=== PATIENT | female | born 1980 | race Caucasian/White ===

== ENCOUNTER 2022-07-30 14:25 | Outpatient (CLI) | payer OTHER, SELFPAY ==
--- NOTE | 2022-07-30 14:30 | MM_ITS ---
WS: [id number] BILATERAL 3D TOMOSYNTHESIS DIGITAL SCREENING MAMMOGRAPHY WITH CAD CLINICAL INFORMATION: BILATERAL BREAST LUMP HISTORY: Screening mammogram. Bilateral palpable lumps. TECHNIQUE: Bilateral CC and MLO views. FINDINGS: The breasts are composed of heterogeneous fibroglandular density tissue, which can limit the detectio n of small underlying mass lesions. Palpable marker 12:00 LEFT breast and upper outer RIGHT breast ne ar the axillary tail. Bilateral breast implants appear intact. Incidental coarse calcifications RIGHT breast. Ultrasound is pending. ULTRASOUND BREAST BILATERAL TECHNIQUE: Ultrasound bilateral breast focused area of concern. CLINICAL INFORMATION: BILATERAL BREAST LUMP COMPARISON: None. FINDINGS: RIGHT BREAST: RIGHT axillary tail ultrasound demonstrates multiple normal size lymph nodes. Additiona l RIGHT lateral lymph node the o'clock position. No suspicious findings in the RIGHT breast. LEFT BREAST: Ultrasound LEFT breast in the area of patient concern at the 12 to 1:00 position. Dense underlying parenchymal tissue. No suspicious cystic or solid lesions. No lesions to target for biopsy . MM/[place] [id number] IMPRESSION: BI-RADS: 2-Benign FOLLOW UP: 1 Year Follow-up Recommend return to annual screening mammography.
== END 2022-07-30 14:26 | disposition home or self-care (01) ==
LOC: RAD 14:27
PROVIDERS: Family Provider Family Medicine; PCP Registered Nurse; Visit Provider Registered Nurse
DX: N63.10 Unspecified lump in the right breast, unspecified quadrant (principal); N63.20 Unspecified lump in the left breast, unspecified quadrant
CPT/HCPCS: 76642; 77062

== ENCOUNTER 2022-08-14 06:35 | Outpatient (CLI) | payer OTHER, SELFPAY ==
--- NOTE | 2022-08-14 07:15 | US_ITS ---
WS: [id number] RIGHT UPPER QUADRANT ULTRASOUND HISTORY: K80.20 - Calculus of gallbladder without cholecystitis COMPARISON: None available. Liver: 13.8 cm in length. Normal size liver. No bile duct dilatation or mass. Portal Vein: Normal hepatopetal flow with monophasic waveform. Gallbladder: Normally distended gallbladder with no stones or wall thickening. CBD: 0.2 cm Pancreas: Normal size and echogenicity. Right kidney: 10.3 cm in length. Normal size and echogenicity. No hydronephrosis or mass. Aorta and IVC: Unremarkable abdominal aorta and IVC. No ascites. US/US gall bladder [id number] IMPRESSION: Normal RIGHT upper quadrant ultrasound.
== END 2022-08-14 06:36 | disposition home or self-care (01) ==
LOC: RAD 06:35
PROVIDERS: PCP Registered Nurse; Visit Provider Registered Nurse
DX: K80.20 Calculus of gallbladder without cholecystitis without obstruction (principal)
CPT/HCPCS: 76705

== ENCOUNTER → 2022-08-20 15:32 | Outpatient (BNVA) | payer OTHER, SELFPAY | PROVIDERS: PCP Registered Nurse; Visit Provider Registered Nurse | DX: Z01.419 Encounter for gynecological examination (general) (routine) without abnormal findings (principal); K21.9 Gastro-esophageal reflux disease without esophagitis | CPT/HCPCS: 87624 ==

== ENCOUNTER → 2022-08-28 16:39 | Outpatient (BNVA) | payer OTHER, SELFPAY | PROVIDERS: PCP Registered Nurse; Visit Provider Registered Nurse | DX: K21.9 Gastro-esophageal reflux disease without esophagitis (principal); R53.83 Other fatigue | CPT/HCPCS: 82306; 82607 ==

== ENCOUNTER → 2022-10-18 13:34 | Outpatient (BNVA) | payer OTHER, SELFPAY | PROVIDERS: PCP Registered Nurse; Visit Provider Nurse Practitioner Family | DX: N39.0 Urinary tract infection, site not specified (principal); L29.9 Pruritus, unspecified; R94.4 Abnormal results of kidney function studies | CPT/HCPCS: 80048; 81000 ==

== ENCOUNTER 2022-11-10 22:54 | Emergency (ER) | payer OTHER, SELFPAY ==
--- NOTE | 2022-11-10 23:08 | XRR_ITS ---
PROCEDURE INFORMATION: Exam: XR Chest Exam date and time: 11/11/2022 12:41 AM Age: 42 years old Clinical indication: Shortness of breath; Additional info: SOB TECHNIQUE: Imaging protocol: Radiologic exam of the chest. Views: 1 view. COMPARISON: CT abdomen pelvis w con* [id number] 03/28/2018 1:04 PM FINDINGS: Lungs: Unremarkable. No consolidation. Pleural spaces: Unremarkable. No pleural effusion. No pneumothorax. Heart/Mediastinum: Unremarkable. No cardiomegaly. Bones/joints: Unremarkable. XR/XR chest 1V portable [id number] IMPRESSION: No acute findings.
[2022-11-10 23:21] VITALS: BP 125/69; PULSE 86; RESP 18; TEMP 37.4; O2SAT 99
--- NOTE | 2022-11-11 00:24 | W.ED.GENADLT ---
HPI - General Adult General: Chief complaint: General Medical Stated complaint: covid symptoms Time Seen by Provider: 11/10/22 23:39 History of Present Illness: 42-year-old female comes in today for complaints of sore throat and exposure to COVID-19. Patient reports symptoms starting today. Patient appears nontoxic. Patient appears mildly unwell. Associated symptoms: Reports malaise Review of Systems Const: Reports: malaise ENMT: Reports: throat pain PFSH ED PFSH: Surgical History Hx of breast augmentation Family History Family/Other No problems noted. Social History Smoking and tobacco status: never smoked Alcohol intake: never Adopted: No Caregiver/support person: No Lives independently: No Household members: significant other service: No Current occupational status: employed Sexually active: Yes Current gender identity: Female Physical Exam Const: COMMON NORMALS: alert HENMT: COMMON NORMALS: normocephalic HEAD & SCALP: normocephalic Neck/C-Spine: COMMON NORMALS: full ROM Resp: COMMON NORMALS: normal respiratory effort and clear to auscultation bilaterally AUSCULTATION: clear to auscultation bilaterally Cardio: COMMON NORMALS: regular rate and regular rhythm RATE: regular rate RHYTHM: regular rhythm Extremity: COMMON NORMALS: normal to inspection Neuro: SENSORIUM/ORIENTATION: Yes alert Skin: COMMON NORMALS: turgor normal GENERAL SKIN EXAM: turgor normal Course Vital Signs: Vital signs: Vital Signs Temperature 99.3 F 11/10/22 23:21 Pulse Rate 86 11/10/22 23:21 Respiratory Rate 18 11/10/22 23:21 Blood Pressure 125/69 11/10/22 23:21 Pulse Oximetry 99 11/10/22 23:21 Oxygen Delivery Me thod 11/10/22 23:21 [facility] - General Adult Medical Decision Making 42-year-old female comes in today for complaints of sore throat and malaise. On exam posterior pharynx is slightly erythematous. Lungs are clear to auscultation. Abdomen soft nontender. No edema is noted in the extremities. Differential diagnosis includes COVID-19, other viral illness, pharyngitis. COVID and influenza were both negative. Reviewed exam with patient with recommendations for treatment and follow-up. Patient reported understanding and agreed to plan. Lab Data Radiology Impressions Chest X-Ray 11/10/22 23:08 IMPRESSION: No acute findings. Laboratory Results Influenza Type A Ag negative (Negative) 11/11/22 00:30 Influenza Type B Ag negative (Negative) 11/11/22 00:30 SARS-CoV-2 Ag (Rapid) negative (Negative) 11/11/22 00:30 Discharge Plan Discharge Patient Disposition: Home Clinical Impression: Viral respiratory illness Condition: Stable Prescriptions: No Action cholecalciferol (vitamin D3) 325 mcg (13,000 unit) capsule PO mecobalamin (vitamin B12) 5,000 mcg tablet,disintegrating PO Discharge Orders: Discharge ED (Routine); Ordered 11/11/22 Ordered By: Avila Smith Referrals: Louis Mendez FNP [Primary Care Provider] - Discharge Diet: Usual diet Discharge Activity: Increase activity as tolerated Patient Instructions: Upper Respiratory Infection (ED) Activity Restrictions/Additional Instructions: Home and rest. Use acetaminophen and ibuprofen as needed for pain and fever. Follow-up with primary care as needed. Return to emergency department for new concerns. Coding Level of Care Code ED Monotype Keyboard Operator for [place] Exam Detailed
[2022-11-11 00:55] LABS: Influenza A by IFA negative (Negative); Influenza B by IFA negative (Negative)
[2022-11-11 00:56] LABS: SARS Covid-2 Antigen negative (Negative)
== END 2022-11-11 01:16 | disposition home or self-care (01) ==
PROVIDERS: Emergency Medicine; Emergency Provider Nurse Practitioner Family; PCP Registered Nurse
DX: B34.9 Viral infection, unspecified (principal); Z20.822 Contact with and (suspected) exposure to COVID-19
CPT/HCPCS: 71045; 87426; 87804; 99283

== ENCOUNTER 2022-12-06 09:57 | Outpatient (CLI) | payer OTHER, SELFPAY | END 2022-12-06 09:58 | disposition home or self-care (01) | LOC: SLEEP 12-07 09:58 | PROVIDERS: PCP Registered Nurse; Visit Provider Nurse Practitioner Family | DX: R53.83 Other fatigue (principal); R06.83 Snoring; G47.19 Other hypersomnia | CPT/HCPCS: G0399 ==

== ENCOUNTER 2022-12-14 07:36 | Outpatient (CLI) | payer OTHER, SELFPAY ==
--- NOTE | 2022-12-14 08:00 | NM_ITS ---
WS: [id number] NUCLEAR MEDICINE HIDA SCAN WITH GALLBLADDER EJECTION FRACTION HISTORY: R10.811 - Right upper quadrant abdominal tenderness COMPARISON: Gallbladder ultrasound 08/14/2022 TECHNIQUE: The patient was intravenously injected with 8.0 mCi of TC99m Mebrofenin. Immediate imaging over the right upper quadrant was followed by 5 minute image and additional images for a total of 60 minutes. Normal uptake of radiotracer throughout the liver. Activity identified in the gallbladder at 20 minutes and well distended by 60 minutes. Activity in the proximal small bowel was seen by 20 minutes. Good washout of the radiotracer from the liver by 60 minutes. The patient then drank 8 ounces of Ensure Plus. Ejection fraction at 60 minutes was 63%. Normal GB ej ection fraction is 35-75%. Post fatty meal symptoms: None. NM/NM hepatobiliary w phar* [id number] IMPRESSION: 1. Normal HIDA scan. 2. Normal gallbladder ejection fraction.
== END 2022-12-14 07:37 | disposition home or self-care (01) ==
PROVIDERS: PCP Registered Nurse; Visit Provider Nurse Practitioner Family
DX: R10.811 Right upper quadrant abdominal tenderness (principal)
CPT/HCPCS: 78227; A9537

== ENCOUNTER → 2023-01-11 15:07 | Outpatient (BNVA) | payer OTHER, SELFPAY | PROVIDERS: PCP Registered Nurse; Visit Provider Nurse Practitioner Family | DX: R39.9 Unspecified symptoms and signs involving the genitourinary system (principal); N30.10 Interstitial cystitis (chronic) without hematuria | CPT/HCPCS: 81000 ==

== ENCOUNTER → 2023-01-18 15:47 | Outpatient (BNVA) | payer OTHER, SELFPAY | PROVIDERS: PCP Registered Nurse; Visit Provider Registered Nurse | DX: N39.0 Urinary tract infection, site not specified (principal) | CPT/HCPCS: 81000 ==

== ENCOUNTER → 2023-02-15 14:27 | Outpatient (BNVA) | payer OTHER, SELFPAY | PROVIDERS: PCP Registered Nurse; Visit Provider Registered Nurse | DX: N39.0 Urinary tract infection, site not specified (principal); N30.10 Interstitial cystitis (chronic) without hematuria; G47.00 Insomnia, unspecified | CPT/HCPCS: 85025 ==

== ENCOUNTER → 2023-02-18 13:56 | Outpatient (BNVA) | payer OTHER, SELFPAY | PROVIDERS: PCP Registered Nurse; Visit Provider Registered Nurse | DX: R53.83 Other fatigue (principal) | CPT/HCPCS: 80053; 82306; 82607; 84443; 85025 ==

== ENCOUNTER 2023-08-12 07:43 | Outpatient (CLI) | payer OTHER, SELFPAY ==
--- NOTE | 2023-08-12 07:55 | MM_ITS ---
WS: [id number] BILATERAL SCREENING DIGITAL BREAST MAMMOGRAPHY WITH LEATHA DISPLACEMENT VIEWS. CAD PERFORMED. HISTORY: SCREENING COMPARISON: 07/30/2022 Bilateral craniocaudal and mediolateral oblique views are performed with tomosynthesis and SM. Leatha displacement views in CC and MLO projection also performed. Breasts composition: The breasts are heterogeneously dense, which may obscure small masses. Implants are retropectoral and intact. No change. Small cluster of calcifications is noted 12:00 RIGH T breast which are also unchanged. Benign in appearance. IMPRESSION: MM/[place] [id number] BI-RADS: 2-Benign FOLLOW-UP: 1 Year Follow-up
== END 2023-08-12 07:44 | disposition home or self-care (01) ==
LOC: RAD 07:45
PROVIDERS: PCP Registered Nurse; Visit Provider Registered Nurse
DX: Z12.31 Encounter for screening mammogram for malignant neoplasm of breast (principal)
CPT/HCPCS: 77063; 77067

== ENCOUNTER 2023-12-11 06:08 | Day surgery (SDC) | payer OTHER, SELFPAY ==
[2023-12-11 06:32] VITALS: BP 107/73; PULSE 90; RESP 18; TEMP 36.1; O2SAT 96; BMI 20.2
[2023-12-11] MEDS: sodium chloride 0.9% 1,000 ML 30 ML IV (06:46)
--- NOTE | 2023-12-11 06:56 | ANES.PREANE2 ---
Pre-Anesthetic Assessment Height/Weight: Height 1.65 m Weight 55.338 kg Temp Pulse Resp BP Pulse Ox O2 Del Method 97.0 F L 90 18 107/73 96 Room Air 12/11/23 06:32 12/11/23 06:32 12/11/23 06:32 12/11/23 06:32 12/11/23 06:32 12/11/23 06:32 Operation Date: 12/11/23 07:30 [place] 10578 egd R10.13(Not Applicable) - Vladimir Holbrook DO Last intake: Intake Last Liquid Date 12/10/23 Last Liquid Time 21:45 Last Solid Date 12/10/23 Last Solid Time 18:30 Social No alcohol and No tobacco Exam alert, oriented x 3, clear to auscultation bilaterally and regular rate & rhythm Airway Submandibular: within normal limits Cervical ROM: within normal limits Mallampati: Class II History/ROS No significant history except as noted and No significant complaints Pulmonary Cough CV/HEM None reported None reported Hepatic None reported GI Gastroesophageal Reflux Disease Metabolic None reported Musc/skel Lower Back Pain and Osteoarthritis/DJD Neuropsych Anxiety and Seizure (eclampsia) Anesthetic Plan ASA status: 2 Anesthesia: MAC Risk of > 500 ml blood loss (7ml/kg in children): No Medications/Allergies Home Medications Medication Instructions Recorded Confirmed Last Taken Type albuterol sulfate 90 mcg/actuation 2 puff inhalation Q6H PRN 10/24/23 12/11/23 7 Months Ago Rx aerosol inhaler shortness of breath or wheezing ~05/11/23 #8.5 grams cholecalciferol (vitamin D3) 1,250 1,250 mcg PO DAILY 11/27/23 12/09/23 12/10/23 History mcg (50,000 unit) capsule pantoprazole 40 mg tablet,delayed 40 mg PO BID 6 weeks #84 tabs 11/27/23 12/09/23 12/10/23 Rx release (Protonix) alprazolam 0.25 mg tablet 0.25 mg PO BID PRN Anxiety 12/09/23 12/09/23 12/09/23 History cyanocobalamin (vitamin B-12) 1,000 mcg PO DAILY 12/09/23 12/09/23 12/10/23 History 1,000 mcg tablet (Vitamin B-12) tretinoin 0.05 % topical cream 1 applic topical BEDTIME 12/09/23 12/09/23 12/10/23 History Allergies Allergy/AdvReac Type Severity Reaction Status Date / Time No Known Allergies Allergy Verified 11/27/23 13:55 Current Medications Generic Name Dose Route Start Last Admin Trade Name Sweetie PRN Reason Stop Dose Admin Sodium Chloride 1,000 mls @ 30 mls/hr 12/11/23 06:30 12/11/23 06:46 Sodium Chloride 0.9% IV 12/12/23 06:29 30 mls/hr .Q24H KIMBER Administration PFSH Anesthesia Surgical History Hx of breast augmentation Family History Family/Other No problems noted. Social History Smoking and tobacco/nicotine status: never used tobacco/nicotine Alcohol intake: never Substance/Drug Use: never Adopted: No Caregiver/support person: No Lives independently: No Household members: significant other service: No Current occupational status: employed Sexually active: Yes Do you think of yourself as: Straight/Heterosexual Current gender identity: Female Female Reproductive History Date of last menstrual period: 11/23/23 Data Anesthesia Cardiac Studies: No Data to Display
--- NOTE | 2023-12-11 07:29 | W.PM.OPSUD ---
Surgery/Procedure H&P Update DATE OF PROCEDURE: December 11, 2023 DATE H&P PERFORMED: 11/27/23 H&P UPDATE INFORMATION: I have reviewed H&P completed within last 30 days, I have examined patient prior to procedure and No changes to prior documentation PLANNED PROCEDURE: Operation Date: 12/11/23 07:30 Proposed Procedures p 69446 egd R10.13(Not Applicable) - Vladimir Holbrook, DO
[2023-12-11 07:41] LABS: OR HCG Qualitative Urine Negative (Negative)
[2023-12-11 07:48] VITALS: BP 93/51; PULSE 79; RESP 18; TEMP 36.6; O2SAT 96
[2023-12-11 08:07] VITALS: BP 101/74; PULSE 80; RESP 16; O2SAT 98
--- NOTE | 2023-12-11 14:13 | ANE.PACU2 ---
Inpatient post-anesthesia follow up: Airway intact: Yes Vital signs: Temperature 98 F Pulse Rate 80 Respiratory Rate 16 Blood Pressure 101/74 Pulse Oximetry 98 Oxygen Delivery Me thod Room Air Oxygen Flow Rate Fraction of Inspir ed Oxygen Hydration adequate: Yes Nausea and vomiting: No Pain level: 2 Mental status: Baseline
== END 2023-12-11 08:30 | disposition home or self-care (01) ==
PROVIDERS: Anesthesiology; PCP Registered Nurse; Visit Provider Surgery
PROC: 0DJ08ZZ Inspection of Upper Intestinal Tract, Via Natural or Artificial Opening Endoscopic (ICD-10-PCS; CPT 43235; principal; 2023-12-11 07:30)
DX: R10.13 Epigastric pain (principal); K29.50 Unspecified chronic gastritis without bleeding; K21.9 Gastro-esophageal reflux disease without esophagitis
CPT/HCPCS: 43239; 81025; 84703; 88305; 88342; J2704; J7030

== ENCOUNTER 2024-01-14 06:54 | Day surgery (SDC) | payer OTHER, SELFPAY ==
[2024-01-14] VITALS (14 sets, daily range): BP systolic 102–132; BP diastolic 68–93; PULSE 52–96; RESP 16–18; TEMP 36.1–36.6; O2SAT 92–99; BMI 20.1
[2024-01-14 07:12] LABS: OR HCG Qualitative Urine Negative (Negative)
[2024-01-14] MEDS: sodium chloride 0.9% 1,000 ML 30 ML IV (07:24)
--- NOTE | 2024-01-14 07:34 | ANES.PREANE2 ---
Pre-Anesthetic Assessment Height/Weight: Height 1.65 m Weight 54.885 kg Temp Pulse Resp BP Pulse Ox O2 Del Method 97.8 F 79 18 102/70 97 Room Air 01/14/24 07:18 01/14/24 07:18 01/14/24 07:18 01/14/24 07:18 01/14/24 07:18 01/14/24 07:13 Operation Date: 01/14/24 08:45 Proposed Procedures p [id number] lap mainor K80.50(Not Applicable) - Vladimir Holbrook, DO Was Beta Aki taken within 24 hours: N/A Was Clonidine taken within 24 hours: N/A Last intake: Intake Last Liquid Date 01/13/24 Last Liquid Time 23:00 Last Solid Date 01/13/24 Last Solid Time 18:00 Social No tobacco Exam alert and oriented x 3 Airway Submandibular: within normal limits Cervical ROM: within normal limits Mallampati: Class I History/ROS No significant history except as noted and No significant complaints Anesthetic Plan ASA status: 1 Anesthesia: General Risk of > 500 ml blood loss (7ml/kg in children): No Medications/Allergies Home Medications Medication Instructions Recorded Confirmed Last Taken Type albuterol sulfate 90 mcg/actuation 2 puff inhalation Q6H PRN 10/24/23 01/14/24 1 Day Ago Rx aerosol inhaler shortness of breath or wheezing ~01/13/24 #8.5 grams cholecalciferol (vitamin D3) 1,250 1,250 mcg PO DAILY 11/27/23 01/14/24 1 Day Ago History mcg (50,000 unit) capsule ~01/13/24 pantoprazole 40 mg tablet,delayed 40 mg PO BID 6 weeks #84 tabs 11/27/23 01/13/24 01/13/24 Rx release (Protonix) alprazolam 0.25 mg tablet 0.25 mg PO BID PRN Anxiety 12/09/23 01/14/24 1 Day Ago History ~01/13/24 cyanocobalamin (vitamin B-12) 1,000 mcg PO DAILY 12/09/23 01/14/24 1 Day Ago History 1,000 mcg tablet (Vitamin B-12) ~01/13/24 tretinoin 0.05 % topical cream 1 applic topical BEDTIME 12/09/23 01/13/24 01/12/24 History Allergies Allergy/AdvReac Type Severity Reaction Status Date / Time No Known Allergies Allergy Verified 01/14/24 07:19 Current Medications Generic Name Dose Route Start Last Admin Trade Name Sweetie PRN Reason Stop Dose Admin Sodium Chloride 1,000 mls @ 30 mls/hr 01/14/24 07:00 01/14/24 07:24 Sodium Chloride 0.9% IV 01/15/24 06:59 30 mls/hr .Q24H KIMBER Administration PFSH Anesthesia Surgical History Hx of breast augmentation Family History Family/Other No problems noted. Social History Smoking and tobacco/nicotine status: never used tobacco/nicotine Alcohol intake: never Substance/Drug Use: never Adopted: No Caregiver/support person: No Lives independently: No Household members: significant other service: No Current occupational status: employed Sexually active: Yes Do you think of yourself as: Straight/Heterosexual Current gender identity: Female Data Anesthesia Cardiac Studies: No Data to Display
--- NOTE | 2024-01-14 08:31 | W.PM.OPSUD ---
Surgery/Procedure H&P Update DATE OF PROCEDURE: January 14, 2024 DATE H&P PERFORMED: 12/18/23 H&P UPDATE INFORMATION: I have reviewed H&P completed within last 30 days, I have examined patient prior to procedure and No changes to prior documentation PLANNED PROCEDURE: Operation Date: 01/14/24 08:45 Proposed Procedures p [id number] lap mainor K80.50(Not Applicable) - Vladimir Holbrook DO
[2024-01-14] MEDS: midazolam 1 mg/mL INJ 2 mL 2 MG IVP (09:42)
[2024-01-14] MEDS: ceFAZolin 2,000 MG in sodium chloride 0.9% (plus) 50 ML 100 MG IV (09:47)
[2024-01-14] MEDS: lidocaine-epi 2% PF 1:200,000 20 mL SDV XX (10:14)
--- NOTE | 2024-01-14 10:19 | P.OP_ITS ---
Operative Report Date of procedure: January 14, 2024 Surgeon: Vladimir Holbrook DO Brief History: This very pleasant 33-year-old female who came to my office with abdominal pain. After complete workup she diagnosed with biliary colic and right upper quadrant syndrome. Laparoscopic cholecystectomy was recommended. The risks and benefits, especially the fact that there is a 20 to 30% chance that cholecystectomy does not relieve all of her symptoms, were explained to the patient. She is understanding the risks and wished to proceed. Procedure: Preoperative diagnosis: Biliary colic, right upper quadrant syndrome Postoperative diagnosis: Same Procedure performed: Laparoscopic cholecystectomy Surgeon: Dr. Vladimir Holbrook DO Estimated blood loss: 5 mL Specimens: Gallbladder to pathology Complications: None apparent Description of procedure: Patient was wheeled into the operative room and placed on the OR table in a supine position. Abdomen was inspected prepped and draped in usual sterile fashion. Time-out was performed and all present were in agreement. A 15 blade scalp was used to make a stab incision in the left upper quadrant and intra- abdominal insufflation was achieved using a Veress needle. After localizing the tissue incisions were made and a 5 millimeter trocar was placed into the umbilicus as well as 2 in the right upper quadrant. A 12 millimeter trocar was placed in the epigastrium. Gallbladder was grasped and elevated. The triangle of Calot was carefully dissected using blunt dissection and electrocautery until the triangle of Calot clearly identified. The cystic duct was clipped proximally and double clipped distally. The duct was then ligated proximally. The cystic artery was doubly clipped and ligated. The gallbladder was then removed from the liver bed using electrocautery. The gallbladder was removed from the abdomen using an Endo-Catch bag through the epigastric incision. The liver bed was inspected and no bleeding was seen. The abdomen was irrigated and suctioned. All ports removed. Skin was washed and dried. Incisions were closed with 4-0 Monocryl in a subcuticular interrupted fashion. Skin glue was applied. Patient tolerated the procedure well.
[2024-01-14] MEDS: fentaNYL 50 mcg/mL INJ 2mL IVP ×2 (10:35→10:45)
[2024-01-14] MEDS: HYDROmorphone 1 mg/mL INJ 1 mL 0.5 MG IVP (10:55)
[2024-01-14] MEDS: ketorolac 30 mg/mL INJ IVP (11:05)
[2024-01-14] MEDS: ondansetron 2 mg/ML SDV 2 mL 4 MG IVP (11:25)
[2024-01-14] MEDS: HYDROcodone-acetaminophen 7.5-325 mg Tablet 1 TAB PO (11:58)
--- NOTE | 2024-01-14 16:30 | ANE.PACU2 ---
Inpatient post-anesthesia follow up: Airway intact: Yes Vital signs: Temperature 97.2 F Pulse Rate 52 Respiratory Rate 18 Blood Pressure 113/74 Pulse Oximetry 93 Oxygen Delivery Me thod Room Air Oxygen Flow Rate Fraction of Inspir ed Oxygen Hydration adequate: Yes Nausea and vomiting: No Pain level: 3 Mental status: Baseline
== END 2024-01-14 12:30 | disposition home or self-care (01) ==
PROVIDERS: Student in an Organized Health Care Education/Training Program; PCP Registered Nurse; Visit Provider Surgery
PROC: 0FT44ZZ Resection of Gallbladder, Percutaneous Endoscopic Approach (ICD-10-PCS; CPT 47562; principal; 2024-01-14 08:35)
DX: K81.1 Chronic cholecystitis (principal); K21.9 Gastro-esophageal reflux disease without esophagitis
CPT/HCPCS: 47562; 81025; 84703; 88304; J0690; J1100; J1170; J1885; J2250; J2405; J2704; J2710; J3010; J3490; J7030

== ENCOUNTER → 2024-01-20 10:25 | Outpatient (BNVA) | payer OTHER, SELFPAY | PROVIDERS: PCP Registered Nurse; Visit Provider Nurse Practitioner Family | DX: R50.9 Fever, unspecified (principal) | CPT/HCPCS: 87400; 87426 ==

== ENCOUNTER → 2024-03-30 14:59 | Outpatient (BNVA) | payer SELFPAY | PROVIDERS: PCP Registered Nurse; Visit Provider Registered Nurse | DX: R39.9 Unspecified symptoms and signs involving the genitourinary system (principal); R53.83 Other fatigue | CPT/HCPCS: 80053; 81000; 82607; 85025 ==

== ENCOUNTER 2024-05-21 14:02 | Emergency (ER) | payer OTHER, SELFPAY ==
[2024-05-21 14:04] VITALS: BP 105/73; PULSE 77; RESP 14; TEMP 36.7; O2SAT 99
--- NOTE | 2024-05-21 14:26 | XRR_ITS ---
PROCEDURE INFORMATION: Exam: XR Chest Exam date and time: 05/21/2024 2:34 PM Age: 44 years old Clinical indication: Dyspnea; Additional info: Dyspnea/cough TECHNIQUE: Imaging protocol: Radiologic exam of the chest. Views: 1 view. COMPARISON: CR XR chest 1V portable [id number] 11/11/2022 12:41 AM FINDINGS: Lungs: Unremarkable. No consolidation. Pleural spaces: Unremarkable. No pleural effusion. No pneumothorax. Heart/Mediastinum: Unremarkable. No cardiomegaly. Bones/joints: Unremarkable. XR/XR chest 1V portable [id number] IMPRESSION: No acute findings. The
--- NOTE | 2024-05-21 14:27 | ECG_ITS ---
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 Measurements Intervals Mina Rate: 86 P: 72 OK: 125 QRS: 71 QRSD: 75 T: 59 QT: 363 QTc: 435 Interpretive Statements SINUS RHYTHM WITH SINUS ARRHYTHMIA NONSPECIFIC T-WAVE ABNORMALITY No previous ECG available for comparison Electronically Signed On 05-21-2024 20:19:17 CDT by Horacio Engle M.D. [id number]
[2024-05-21 14:35] LABS: Basophils % 0.4 %; Eosinophils # 0.3 10^3/uL (0.0-0.8); Eosinophils % 4.2 %; Hematocrit 42.8 % (36-47); Lymphocytes # 2.2 10^3/uL (0.8-4.8); Lymphocytes % 31.7 %; Mean Corpuscular HGB Conc 32.9 g/dL (30-55); Mean Corpuscular Hemoglobin 30.2 pg (27-33); Mean Corpuscular Volume 91.6 fl (85-98); Mean Platelet Volume 8.8 fL (7.4-10.4); Monocytes # 0.8 10^3/uL (0.2-0.9); Monocytes % 11.5 %; Neutrophils # 3.61 10^3/uL (1.8-7.7); Neutrophils % 52.1 %; Nucleated Red Blood Cells % 0 %; Platelet Count 321 10^3/cmm (157-399); Red Blood Count 4.67 10^6/uL (3.85-5.65); White Blood Count 6.94 10^3/uL (3.29-11.43)
--- NOTE | 2024-05-21 14:46 | ED_ITS ---
HPI - Arrhythmia/Palpitations 2 General: Chief Complaint: Arrhythmia/Palpitations Stated Complaint: Chest Pain, SOB, heart palptations Time Seen by Provider: 05/21/24 14:17 Source: patient Mode of arrival: ambulatory History of Present Illness: 45-year-old female presents emergency co mplaining of chest pain shortness of breath palpitations. This been going on for over a week she seen her primary care doctor last week and she was referred to cardiology. No history of coronary artery disease. No chest pain at this time. No fever sweats chills. She is complaining of shortness of breath worse with any activity. She does not smoke no history of any chronic airway disease. MD complaint: palpitations Associated symptoms: Deny no associated symptoms, anxiety, cough, diaphoresis, muscle cramps, nausea, paresthesias, pre-syncope, sense of impending doom, short of breath, syncope, vomiting or other Review of Systems 2 Const: Denies: fever(s), chills or diaphoresis Card: Denies: chest pain, syncope or pre-syncope Resp: Denies: dyspnea GI: Denies: abdominal pain, nausea or vomiting : Denies: dysuria, urinary frequency or urinary urgency Musc: Denies: neck pain, back pain or muscle cramps Skin/Breast: Denies: rash Psych: Denies: anxiety PFSH ED 2 PFSH: Surgical History Hx of breast augmentation Family History Family/Other No problems noted. Social History Smoking and tobacco/nicotine status: never used tobacco/nicotine Alcohol intake: never Substance/Drug Use: never Adopted: No Caregiver/support person: No Lives independently: No Household members: significant other service: No Current occupational status: employed Sexually active: Yes Do you think of yourself as: Straight/Heterosexual Current gender identity: Female Physical Exam 2 Const: COMMON NORMALS: no acute distress GENERAL APPEARANCE: cooperative and comfortable ORIENTATION/CONSCIOUSNESS: Yes awake, Yes oriented to person, Yes oriented to place and Yes oriented to time HENMT: COMMON NORMALS: normocephalic, atraumatic and hearing grossly normal bilaterally HEAD & SCALP: normocephalic and atraumatic Resp: COMMON NORMALS: normal respiratory effort, No retractions, No use of accessory muscles and clear to auscultation bilaterally AUSCULTATION: clear to auscultation bilaterally Cardio: COMMON NORMALS: regular rate, regular rhythm and No murmurs present (Cardio) RATE: regular rate RHYTHM: regular rhythm GI: COMMON NORMALS: Soft to palpation and No hepatosplenomegaly present A USCULTATION: Yes normoactive bowel sounds PALPATION: Yes Soft to palpation, No Tenderness to palpation present (GI), No Guarding due to palpation present (GI) and Yes No hepatosplenomegaly present Extremity: COMMON NORMALS: normal to inspection, capillary refill normal, no clubbing, cyanosis or edema, no calf tenderness and no pedal edema Neuro: SENSORIUM/ORIENTATION: Yes oriented to person, Yes oriented to place and Yes oriented to time Skin: COMMON NORMALS: no rashes or lesions noted GENERAL SKIN EXAM: no rashes or lesions noted Course 2 Vital Signs: Vital signs: Vital Signs Temperature 98.1 F 05/21/24 14:04 Pulse Rate 70 05/21/24 16:30 Respiratory Rate 17 05/21/24 16:30 Blood Pressure 98/67 05/21/24 16:30 Pulse Oximetry 100 05/21/24 16:30 Oxygen Delivery Me thod Room Air 05/21/24 16:30 MDM - Arrhythmia/Palpitations Medical Decision Making Patient has home rhythm strips from a phone nuno, cannot really interpret these there is no labeling for the lead that this recorded in. P waves and T waves are not identifiable what appears to be QRS wave is regular. Cardiac enzymes are negative. EKG done here shows normal sinus rhythm without acute ST elevation or abnormality. Chest x-ray is normal D-dimer mildly elevated CTA of the chest was negative. Discharged home to complete cardiology referral as per her primary care physician. Medical Records I reviewed the patient's medical records. Lab Data I reviewed the patient's lab results. 05/21/24 14:22 05/21/24 14:22 Radiology Impressions Chest X-Ray 05/21/24 14:26 IMPRESSION: No acute findings. The Chest CTA 05/21/24 15:47 IMPRESSION: No acute findings. Laboratory Results WBC 6.94 10^3/uL (3.29-11.43) 05/21/24 14:22 RBC 4.67 10^6/uL (3.85-5.65) 05/21/24 14:22 Hgb 14.10 g/dL (11.27-16.99) 05/21/24 14:22 Hct 42.8 % (36-47) 05/21/24 14:22 MCV 91.6 fl (85-98) 05/21/24 14:22 MCH 30.2 pg (27-33) 05/21/24 14:22 MCHC 32.9 g/dL (30-55) 05/21/24 14:22 RDW 12.0 % (12.1-15.1) L 05/21/24 14:22 Plt Count 321 10^3/cmm (157-399) 05/21/24 14:22 MPV 8.8 fL (7.4-10.4) 05/21/24 14:22 Neut % (Auto) 52.1 % 05/21/24 14:22 Lymph % (Auto) 31.7 % 05/21/24 14:22 [place] % (Auto) 11.5 % 05/21/24 14:22 Eos % (Auto) 4.2 % 05/21/24 14:22 Baso % (Auto) 0.4 % 05/21/24 14:22 Neut # (Auto) 3.61 10^3/uL (1.8-7.7) 05/21/24 14:22 Lymph # (Auto) 2.2 10^3/uL (0.8-4.8) 05/21/24 14:22 [place] # (Auto) 0.8 10^3/uL (0.2-0.9) 05/21/24 14:22 Eos # (Auto) 0.3 10^3/uL (0.0-0.8) 05/21/24 14:22 Baso # (Auto) 0.0 10^3/uL (0.0-0.1) 05/21/24 14:22 Nucleated RBC % (auto) 0 % 05/21/24 14:22 Nucleated RBCs # 0.0 /100WBC 05/21/24 14:22 D-Dimer 0.77 ug/mLFEU (0-0.59) H 05/21/24 14:22 Sodium 141 mmol/L (136-145) 05/21/24 14:22 Potassium 4.3 mmol/L (3.5-5.1) 05/21/24 14:22 Chloride 103 mmol/L (98-107) 05/21/24 14:22 Carbon Dioxide 27 mmol/L (22-29) 05/21/24 14:22 Anion Gap 15.3 (5-19) 05/21/24 14:22 BUN 11 mg/dL (6-20) 05/21/24 14:22 Creatinine 0.7 mg/dL (0.5-0.9) 05/21/24 14:22 GFR Calculation 91.8 mL/min (90-130) 05/21/24 14:22 Glucose 80 mg/dL (65-115) 05/21/24 14:22 Calculated Osmolality 290 mOsm/kg (285-295) 05/21/24 14:22 Calcium 9.1 mg/dL (8.5-10.5) 05/21/24 14:22 Total Bilirubin 0.6 mg/dL (0.15-1.2) 05/21/24 14:22 AST 14 U/L (0-32) 05/21/24 14:22 ALT 10 U/L (0-33) 05/21/24 14:22 Alkaline Phosphatase 56 U/L (35-105) 05/21/24 14:22 Troponin T Baseline < 6 ng/L (0-10) 05/21/24 14:22 Troponin T 120 Minute 6.00 ng/L (0-10) 05/21/24 16:08 Delta Troponin T 0.60165 ABS# (0-10) 05/21/24 16:08 Total Protein 7.8 g/dL (6.6-8.7) 05/21/24 14:22 Albumin 4.5 g/dL (3.5-5.2) 05/21/24 14:22 Globulin 3.3 g/dL (1.3-4.6) 05/21/24 14:22 TSH 1.46 uIU/mL (0.27-4.20) 05/21/24 14:22 All radiology interpretation(s) finalized by discharge Discharge Plan Discharge Condition: Stable Prescriptions: No Action Linzess 72 mcg capsule 72 mcg PO DAILY Qty: 30 1RF cholecalciferol (vitamin D3) 1,250 mcg (50,000 unit) capsule 1,250 mcg PO DAILY albuterol sulfate 90 mcg/actuation HFA aerosol inhaler 2 puff inhalation Q6H PRN (Reason: shortness of breath or wheezing) Qty: 8.5 0RF cyanocobalamin (vitamin B-12) [Vitamin B-12] 1,000 mcg Tablet 1,000 mcg PO DAILY tretinoin 0.05 % cream 1 applic TOPICAL BEDTIME alprazolam 0.25 mg tablet 0.25 mg PO BID PRN (Reason: Anxiety) Referrals: Louis Mendez, NATASHA [Primary Care Provider] - Coding Level of Care Code ED Special Events Driver for Gallo Campo
[2024-05-21 14:47] LABS: Troponin(5th) Baseline < 6 ng/L (0-10)
[2024-05-21 14:54] LABS: Alanine Aminotransferase 10 U/L (0-33); Albumin Level 4.5 g/dL (3.5-5.2); Alkaline Phosphatase 56 U/L (35-105); Anion Gap 15.3 (5-19); Aspartate Amino Transferase 14 U/L (0-32); Blood Urea Nitrogen 11 mg/dL (6-20); Calcium 9.1 mg/dL (8.5-10.5); Carbon Dioxide 27 mmol/L (22-29); Chloride 103 mmol/L (98-107); Creatinine Clr Calc Pharmacy 93.1096; Globulin 3.3 g/dL (1.3-4.6); Glomerular Filtration Rate 91.8 mL/min (90-130); Glucose 80 mg/dL (65-115); Osmolality Calculated 290 mOsm/kg (285-295); Potassium 4.3 mmol/L (3.5-5.1); Sodium 141 mmol/L (136-145); Thyroid Stimulating Hormone 1.46 uIU/mL (0.27-4.20); Total Bilirubin 0.6 mg/dL (0.15-1.2); Total Protein 7.8 g/dL (6.6-8.7)
[2024-05-21 15:39] LABS: D Dimer 0.77 ug/mLFEU (0-0.59)
--- NOTE | 2024-05-21 15:47 | CTR_ITS ---
PROCEDURE INFORMATION: Exam: CTA Chest With Contrast Exam date and time: 05/21/2024 3:56 PM Age: 44 years old Clinical indication: Dyspnea TECHNIQUE: Imaging protocol: Computed tomographic angiography of the chest with contrast. Exam focused on the arteries. 3D rendering (Not supervised by radiologist): MIP and/or 3D reconstructed images were created by the technologist. Radiation optimization: All CT scans at this facility use at least one of these dose optimization techniques: automated exposure control; mA and/or kV adjustment per patient size (includes targeted exams where dose is matched to clinical indication); or iterative reconstruction. Contrast material: OMNI 350; Contrast volume: 59 ml; Contrast route: INTRAVENOUS (IV); COMPARISON: CR (CHEST, ) 05/21/2024 2:34 PM RADIATION DOSE METRICS: Total DLP (mGy-cm): 203 FINDINGS: Pulmonary arteries: Normal. No pulmonary emboli. Aorta: Unremarkable. No aortic aneurysm. No aortic dissection. Lungs: Unremarkable. No consolidation. No masses. Pleural spaces: Unremarkable. No pneumothorax. No pleural effusion. Heart: Unremarkable. No cardiomegaly. No pericardial effusion. Lymph nodes: Unremarkable. No enlarged lymph nodes. Bones/joints: Unremarkable. No acute fracture. Soft tissues: Unremarkable. CT/CT angio chest PE protcl [id number] IMPRESSION: No acute findings.
[2024-05-21] MEDS: iohexol 350 mg/mL 500 mL Btl (per mL) IV (16:06)
--- NOTE | 2024-05-21 16:27 | ECG_ITS ---
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 Measurements Intervals [place] Rate: 70 P: 57 VA: 138 QRS: 69 QRSD: 77 T: 55 QT: 409 QTc: 442 Interpretive Statements SINUS RHYTHM LOW QRS VOLTAGE IN PRECORDIAL LEADS [QRS DEFLECTION < 1.0 mV IN CHEST LEADS] Compared to ECG 05/21/2024 14:04:27 Low QRS voltage now present Sinus arrhythmia no longer present T-wave abnormality no longer present Electronically Signed On 05-21-2024 20:22:22 CDT by Horacio Engle M.D. [id number]
[2024-05-21 16:30] VITALS: BP 98/67; PULSE 70; RESP 17; O2SAT 100
[2024-05-21 16:39] LABS: Troponin 5 2HR Delta 0.00001 ABS# (0-10)
[2024-05-21 18:00] VITALS: BP 101/69; PULSE 65; O2SAT 99
[2024-05-21 18:22] VITALS: PULSE 70; O2SAT 96
== END 2024-05-21 18:24 | disposition home or self-care (01) ==
PROVIDERS: Emergency Provider Family Medicine; PCP Registered Nurse
DX: R07.9 Chest pain, unspecified (principal); R06.02 Shortness of breath
CPT/HCPCS: 36415; 71045; 71275; 80053; 84443; 84484; 85025; 85378; 93005; 99285; Q9967

== ENCOUNTER → 2024-07-18 16:39 | Outpatient (BNVA) | payer OTHER, SELFPAY | PROVIDERS: PCP Registered Nurse; Visit Provider Nurse Practitioner Family | DX: R52 Pain, unspecified (principal) | CPT/HCPCS: 87426 ==

== ENCOUNTER → 2025-02-10 12:25 | Outpatient (BNVA) | payer OTHER, SELFPAY | PROVIDERS: PCP Registered Nurse; Visit Provider Internal Medicine Cardiovascular Disease | DX: R07.9 Chest pain, unspecified (principal); R53.83 Other fatigue | CPT/HCPCS: 36415; 84443; 93005 ==

== ENCOUNTER 2025-03-23 08:06 | Outpatient (CLI) | payer OTHER, SELFPAY ==
--- NOTE | 2025-03-23 08:30 | USCV_ITS ---
Kendy Artis Age: 44 Gender: F : 1980 Exam Date: 03/23/2025 08:28 Ordering Phys: Man Montero MD ([email or web address]) Technologist: Exam Location: [facility] Indication: palp BP: 110 / 10 HR: 72 Rhythm: Sinus Technical Quality: Adequate MEASUREMENTS (Male / Female) Normal Values 2D ECHO LV Diastolic Diameter PLAX 3.5 cm 4.2 - 5.9 / 3.9 - 5.3 cm IVS Diastolic Thickness 0.9 cm 0.6 - 1.0 / 0.6 - 0.9 cm IVS Systolic Thickness 1.2 cm LVPW Diastolic Thickness 1.0 cm 0.6 - 1.0 / 0.6 - 0.9 cm LVPW Systolic Thickness 1.4 cm LVOT Diameter 2.0 cm LV Ejection Fraction 2D Teich 66.1 % LV Ejection Fraction MOD 4C 55.0 % LV Ejection Fraction MOD 2C 84.0 % LV Ejection Fraction 2C AL 84.3 % LA Diameter 2.6 cm RA Systolic Volume 4C AL 20.6 ml RA Systolic Volume 4C MOD 20.1 ml Aorta at Sinotubular Diameter 2.3 cm M-MODE LA Ao Ratio MM 1.2 AV Cusp Separation MM 2.0 cm DOPPLER AV Peak Velocity 89.0 cm/s LVOT Peak Velocity 70.0 cm/s AV Area Cont Eq vti 2.5 cm squared AV Area Cont Eq pk 2.4 cm squared MV Peak Velocity 77.0 cm/s MV Area PHT 3.1 cm squared Mitral E to A Ratio 1.1 TV Peak Velocity 161.0 cm/s TR Peak Velocity 208.0 cm/s TR Peak Gradient 17.3 mmHg TV Peak E Velocity 98.0 cm/s PV Peak Velocity 82.0 cm/s FINDINGS Left Ventricle Normal left ventricular size, systolic function and wall thickness, with no regional wall motion abnormalities. Left ventricular ejection fraction is estimated at 60 %. Grade II/IV diastolic dysfunction, moderately elevated filling pressures. Right Ventricle The right ventricle is normal in size and function. Right Atrium The right atrium is normal in size. Left Atrium The left atrium is normal in size. Mitral Valve Mildly thickened mitral valve. No mitral valve stenosis. Mild mitral valve regurgitation. Aortic Valve Structurally normal aortic valve without significant sclerosis or stenosis. There is no aortic regurgitation. Tricuspid Valve Structurally normal tricuspid valve without significant stenosis or regurgitation. Pulmonary artery systolic pressure is normal. Pulmonic Valve Structurally normal pulmonic valve without significant stenosis. There is no pulmonic regurgitation. Pericardium Normal pericardium without effusion. Aorta Normal ascending aorta dimension. IVC The inferior vena cava appears normal. CONCLUSIONS Normal left ventricular size, systolic function and wall thickness, with no regional wall motion abnormalities. Left ventricular ejection fraction is estimated at 60 %. Grade II/IV diastolic dysfunction, moderately elevated filling pressures. Mildly thickened mitral valve. No mitral valve stenosis. Mild mitral valve regurgitation. There is no pericardial effusion. Right atrial pressure is around 5 mm of mercury. Man Montero MD (Electronically Signed) Final Date: 04 Apr 2025 22:40 S
== END 2025-03-23 08:07 | disposition home or self-care (01) ==
PROVIDERS: PCP Registered Nurse; Visit Provider Internal Medicine Cardiovascular Disease
DX: R00.2 Palpitations (principal); R06.02 Shortness of breath; R93.1 Abnormal findings on diagnostic imaging of heart and coronary circulation; I34.0 Nonrheumatic mitral (valve) insufficiency
CPT/HCPCS: 93306

== ENCOUNTER 2025-05-14 18:31 | Emergency (ER) | payer OTHER, SELFPAY ==
--- OUTSIDE RECORDS SUMMARY | 2024-02-20 12:00 | XMS_ITS ---
Author Organization [facility] Address [address] [place] [address] Care Team Providers Care Rod And Tube Straightener Name Role Phone Louis Mendez Primary Care Provider ANALY Quinn Unavailable [phone] REASON FOR VISIT 3 mo w/ ua/pvr Encounters Encounter Location Date Provider Diagnosis [facility] [address] [facility] [place] [address] 02/20/2024 ANAYL VERA Plan Of Treatment No Information Progress Notes * CAITBHARATHKendyDOB:[birth year] (45 yo F)Acc No.[id number]:02/20/2024 Progress Notes Patient: Kendy BECKER Provider: Bailey VERA MD :1980 A ge:43 Y S ex:Female Date:02/20/2024 Address:[address] Pcp:Louis Mendez Subjective: * Chief Complaints: * 1 . 3 mo w/ ua/pvr. * Medical History: Objective: * Vitals: Assessment: Plan: * Treatment: * Billing Information: * Visit Code: * Procedure Codes: * Electronic signature of AUST IN MD JODY on 05/14/2025 at 06:43 PM CDT Sign off status: Pending * Provider: Bailey VERA MD Date: 0 02/20/2024 Generated for Printi ng/Faxing/eTransmitting on: 0 05/14/2025 06:43 PM CDT
[2025-05-14] VITALS (7 sets, daily range): BP systolic 101–120; BP diastolic 70–89; PULSE 64–91; RESP 16; TEMP 36.8; O2SAT 96–98; BMI 20.7
--- OUTSIDE RECORDS SUMMARY | 2025-05-14 18:43 | XMS_ITS | Clinical Summary ---
Author Organization [facility] Address [address] [place] [address] Phone Care Team Providers Care Sales Support Administrator Name Role Phone Cherie Francisco MD Primary Care Provider [phone] Allergies No known active allergies Medications doxycycline hyclate (VIBRAMYCIN) 100 mg capsule TAKE 1 CAPSULE BY MOUTH EVERY DAY 12/24/19 21 Active tretinoin (RETIN-A) 0.05 % Cream 12/10/19 21 Active benzoin compound TinctureIndicatio ns:Encounter for cosmetic procedure Apply to affected area see administration instructions. Apply 45 min before procedure. 07/31/20 21 Active valACYclovir (Valtrex) 1 gram tabletIndications :Encounter for cosmetic procedure Take 1/2 tablet twice daily starting one day prior to procedure. Continue taking 1/2 tablet twice daily for four days following procedure. Enough for one treatment. 5 Tablet 10/26/20 21 Active cyanocobalamin 1,000 mcg Tablet Take 1,000 mcg by mouth daily. Active CALCIUM CARBONATE-VITAMIN D3 ORAL Take 1,000 mg by mouth. Active albuterol sulfate 90 mcg/Actuation inhaler Take 2 Puffs by inhalation every 6 hours as needed for Wheezing or Shortness of Breath. 8.5 Gram 0 06/23/20 16 Active albuterol (PROVENTIL,VENTOL IN) 2.5 mg /3 mL (0.083 %) Solution for Nebulization Take 3 mL (2.5 mg) by inhalation every 6 hours as needed for Shortness of Breath 1 box. 1 mL 0 06/23/20 16 Active norgestimate-ethi nyl estradioL 0.25 mg-35 mcg tabletIndications :Encounter for gynecological examination without abnormal finding Take 1 Tablet by mouth daily. 3 Package 4 06/28/20 16 Active fluticasone propion-salmetero L (ADVAIR DISKUS,WIXELA INHUB) 250-50 mcg/dose disk inhaler Take 1 Puff by inhalation 2 times daily. 08/16/20 16 Active metroNIDAZOLE (FLAGYL) 500 mg tabletIndications :Encounter for gynecological examination without abnormal finding Take 500 mg by mouth 2 times daily. 06/28/20 16 Active montelukast (SINGULAIR) 10 mg tablet Take 10 mg by mouth daily at bedtime. 08/16/20 16 Active calcium citrate-vitamin d3 (CITRACAL D MAX) 315 mg-6.25 mcg (250 unit) Tablet Take by mouth daily. Active ALPRAZolam (XANAX) 0.25 mg tablet Take 0.25 mg by mouth nightly as needed for Anxiety. Active vitamin B complex Tablet Sustained Release Take 1 Tablet by mouth daily. Active famotidine (PEPCID) 40 mg tablet Take 1 Tablet (40 mg) by mouth daily at bedtime. 30 Tablet 6 07/01/20 24 Active Active Problems Problem Noted Date Diagnosed Date Change in bowel movement 07/01/2024 Diarrhea in adult patient 07/01/2024 Abdominal bloating 07/01/2024 GERD (gastroesophageal reflux disease) Mild intermittent asthma 06/28/2016 Encounters Date Type Department Care Team Description 04/20/2025 External Device Data ST[facility] ABSTRACTION Provider, Abstract 04/08/2025 External Device Data [facility] ABSTRACTION Provider, Abstract 03/02/2025 External Device Data [facility] ABSTRACTION Provider, Abstract 02/16/2025 External Device Data [facility] ABSTRACTION Provider, Abstract from Last 3 Months Family History Medical History Relation Name Comments Healthy Daughter Stroke Father Cancer Maternal Grandfather colon Diabetes Maternal Grandfather Type 2 Depression Mother High Cholesterol Mother Kidney Disease Mother Cancer Paternal Grandfather unknown primary Healthy Paternal Grandmother Healthy Sister Healthy Son Relation Name Status Comments Daughter Alive Father Alive Maternal Grandfather Alive Maternal Grandmother Mother Alive Paternal Grandfather Paternal Grandmother Alive Sister Alive Son Alive Social History Tobacco Use Types Packs/Day Years Used Date Smoking Tobacco: Never Smokeless Tobacco: Never Tobacco Cessation:Counseling Given: No Alcohol Use Standard Drinks/Week Comments No 0 (1 standard drink = 0.6 oz pur e alcohol) Comments Unknown Sex and Gender Information Value Date Recorded Sex Assigned at Not on file Legal Sex 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 Gender Identity Not on file Sexual Orientation Not on file Last Filed Vital Signs Vital Sign Reading Time Taken Comments Blood Pressure 118/68 07/01/2024 8:59 AM CDT Pulse 86 07/01/2024 8:59 AM CDT Temperature 36.7 C (98 F) 12/16/2021 8:58 AM MOBILE HOMES REPAIRER Respiratory Rate 18 12/16/2021 6:15 PM MOBILE HOMES REPAIRER Oxygen Saturation 98% 12/18/2021 2:42 PM MOBILE HOMES REPAIRER Inhaled Oxygen Concentration - - Weight 58.1 kg (128 lb) 07/01/2024 8:59 AM CDT Height 165.1 cm (5' 5 ) 07/01/2024 8:59 AM CDT Body Mass Index 21.3 07/01/2024 8:59 AM CDT Plan of Treatment Health Maintenance Due Date Last Done Comments DTAP/TDAP/TD VACCINES (1 - Tdap) 2001 HEPATITIS B VACCINES (1 of 3 - 19+ 3-dose series) 2001 HPV/Cotest (21-29) 2003 HPV/Cotest (30-65) 2012 CERVICAL CANCER SCREENING 06/28/2019 PAP SMEAR 06/28/2019 06/28/2016 BREAST CANCER SCREENING 2022 INFLUENZA VACCINE (#1) 2024 HPV VACCINES Aged Out No longer eligi ble based on patient's age to complete this topic Procedures Procedure Name Priority Date/Time Associated Diagnosis Comments CERV/VAG CYTOPATH, THIN PREP Routine 06/28/2016 10:21 AM CDT from Last 3 Months or Most Recently Relevant to Health Maintenance Results * CERV/VAG CYTOPATH, THIN PREP (06/28/2016 10:21 AM CDT) CASE REPORT Gynecologic Cytology Report Case: [id number] Authorizing Provider: Zita Nolen MD Collected: 06/28/2016 1021 Ordering Location: [facility] Received: 06/29/2016 1215 [facility] First Screen: Lizeth Cuellar Pathologist: Citlalli Singh MD Specimen: LB PAP TP PROT, Endocervix 07/05/2016 7:46 AM CDT [facility] Specimen Adequacy Satisfactory for evaluation, endocervical/david sformation zone component present 07/05/2016 7:46 AM CDT [facility] [employer] General Categorization Epithelial cell abnormality, see interpretation 07/05/2016 7:46 AM CDT [facility] Bark [employer] Interpretation Atypical squamous cells of undetermined significance 07/05/2016 7:46 AM CDT [facility] Bark [employer] Previous Pap Date 07/05/2016 7:46 AM CDT [facility] [employer] [facility] GynLMP 05/30/16 07/05/2016 7:46 AM CDT [facility] Bark [employer] Educational Note 07/05/2016 7:46 AM CDT [facility] Genital SWAB OF ENDOCERVIX / Unknown 06/28/2016 10:21 AM CDT 06/29/2016 12:15 PM CDT Zita Nolen MD PATHOLOGY/CYTOLOGY ORDERABLES F inal Result [facility] CLIA# [id number] [address] [place] [address] [facility] CLIA # [id number] [address] [place] [id number] from Last 3 Months or Most Recently Relevant to Health Maintenance Insurance [place] [id number] POS II Care Teams Sales Support Administrator Relationship Specialty Start Date End Date Cherie Francisco MD [address] [place] [address] PCP - General 02/27/21
--- OUTSIDE RECORDS SUMMARY | 2025-05-14 18:43 | XMS_ITS | Patient Health Record ---
Author Organization [employer] [employer] Address [address] [place] [address] Care Team Providers Care Fur Dressing Supervisor Name Role Phone Louis Mendez Primary Care Provider Madhavi soriano VERA ANALY Unavailable [phone] Allergies No Known Allergies Reason For Referral No Information Medications Medication SIG (Take, Route, Frequency, Duration) Notes Start Date End Date Status Xanax 0.25 MG 1 tablet Orally Twice a day As needed Active Wellbutrin XL 150 MG 1 tablet in the morning Orally Once a day Active Vitamin D Active Lidocaine solution for possible ulcer *Pick strength-form from [employer] for eRX* Not-Taking Social History Tobacco Use: Social History Observation Description Date Details (start date - stop date) Never Smoker NA - NA Tobacco Use/Smoking Question Answer Notes Tobacco use: nonsmoker Problems Problem Type SNOMED Code ICD Code Onset Dates Problem Status W/U Status Risk Notes Problem 878633405 Interstitial cystitis (chronic) without hematuria (N30.10) Active confirmed Problem Lower urinary tract symptoms due to benign prostatic hypertrophy (75176177487674 ) Benign prostatic hyperplasia with lower urinary tract symptoms (N40.1) Active confirmed Problem Chronic bladder pain (R39.82) Active confirmed Problem 962644936 Urinary incontinence, mixed (N39.46) Active confirmed Problem 45322361 Constipation, unspecified constipation type (K59.00) Active confirmed Problem Urgency of micturition (26133123) Urgency of micturition (R39.15) Active confirmed Problem 904292959 Recurrent UTI (N39.0) Active confirmed Problem 856655246 OAB (overactive bladder) (N32.81) Active confirmed Encounters Encounter Location Date Provider Diagnosis [facility] [address] [place] [address] 06/04/2024 ANALY VERA [facility] [address] [place] [address] 06/22/2024 ANALY VERA Plan Of Treatment Pending Test Test Name Order Date CULTURE, URINE, ROUTINE (395) 05/04/2024 CULTURE, URINE, ROUTINE (395) 05/04/2024 Bladder Scan 11/21/2023 Insurance Providers Payer Name Payer Address Payer Phone Subscriber Number Group Number Insured Name Patient Relationship to Insured Coverage Start Date Coverage End Date Ananda [address] [place], [place] [id number] Kendy Evans Self - patient is the insured Medical (General) History Medical History History ICD Code Chicken Pox Pneumonia Back Trouble Recurrent UTI Interstitial Cystitis Depression Surgical History Surgery Date(Month/Year) c sections breast augmentation 2012 wisdom teeth removal 2001 tubal ligation 2009 Cysto with bladder bx and fulguration botox bladder 10/2023 Hospitalization History Reason Date(Month/Year) eclampsia seizures post delivery 2004 surgeries
--- OUTSIDE RECORDS SUMMARY | 2025-05-14 18:43 | XMS_ITS | Encounter Summary ---
Author Organization [facility] Address [address] [place] [address] Care Team Providers Care Automation Qa Tester Name Role Phone Cherie Francisco MD Primary Care Provider [phone] Encounter Details Date Type Department Care Team (Latest Contact Info) Description 01/15/2000 Outpatient [facility] [address] [address] Dennis Adames MD NO ADDRESS ON FILE Contact dermatitis and other eczema, due to unspecified cause (Primary Dx) Social History Tobacco Use Types Packs/Day Years Used Date Smoking Tobacco: Never Assessed Comments Unknown Sex and Gender Information Value Date Recorded Sex Assigned at Not on file Legal Sex Female 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
--- OUTSIDE RECORDS SUMMARY | 2025-05-14 18:43 | XMS_ITS | Clinical Summary ---
Author Organization [facility] [place] Address [address] [place] [address] Phone Care Team Providers Care It Application Architect Name Role Phone Cherie Francisco MD Primary Care Provider Allergies No known active allergies Medications albuterol HFA 90 mcg inhaler Take 2 Puffs by inhalation every 6 hours as needed for Wheezing or Shortness of Breath. 8.5 Gram 0 6 Active albuterol (PROVENTIL,VENTOL IN) 2.5 mg /3 mL (0.083 %) Solution for Nebulization Take 3 mL (2.5 mg) by inhalation every 6 hours as needed for Shortness of Breath 1 box. 1 mL 0 6 Active metroNIDAZOLE (FLAGYL) 500 mg tabletIndications :Encounter for gynecological examination without abnormal finding Take 500 mg by mouth 2 times daily. Active Norgestimate-Ethi nyl estradiol (SPRINTEC, 28,) 0.25-35 mg-mcg tabletIndications :Encounter for gynecological examination without abnormal finding Take 1 Tablet by mouth daily. 3 Package 4 6 Active montelukast (SINGULAIR) 10 mg tablet Take 10 mg by mouth daily at bedtime. Active fluticasone-salme terol (ADVAIR DISKUS) 250-50 mcg/dose disk inhaler Take 1 Puff by inhalation 2 times daily. 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 Gender Identity Not on file Sexual Orientation Not on file Last Filed Vital Signs Vital Sign Reading Time Taken Comments Blood Pressure 110/47 04/25/2021 3:37 PM CDT Pulse 59 04/25/2021 3:37 PM CDT Temperature 37.2 C (98.9 F) 12/13/2018 10:00 AM SODIUM CHLORITE OPERATOR Respiratory Rate 23 12/13/2018 10:00 AM SODIUM CHLORITE OPERATOR Oxygen Saturation 98% 12/13/2018 10:00 AM SODIUM CHLORITE OPERATOR Inhaled Oxygen Concentration - - Weight 59.9 kg (132 lb) 04/25/2021 3:37 PM CDT Height 165.1 cm (5' 5 ) 04/25/2021 3:37 PM CDT Body Mass Index 21.97 04/25/2021 3:37 PM CDT Plan of Treatment Health Maintenance Due [...] THIN PREP Routine 06/28/2016 10:21 AM CDT Encounter for gynecological examination without abnormal finding from Last 3 Months or Most Recently Relevant to Health Maintenance Results * CERV/VAG CYTOPATH, THIN PREP (06/28/2016 10:21 AM CDT) CASE REPORT Gynecologic Cytology Report Case: [id number] Authorizing Provider: Zita Nolen MD Collected: 06/28/2016 1021 Ordering Location: [facility] Received: 06/29/2016 [address] [place] First Screen: Lizeth Cuellar Pathologist: Citlalli Singh MD Specimen: LB PAP TP PROT, Endocervix 07/05/2016 7:46 AM T [facility] Docketing Specialist Specimen Adequacy Satisfactory for evaluation, endocervical/david sformation zone component present 07/05/2016 7:46 AM CDT [facility] Docketing Specialist General Categorization Epithelial cell abnormality, see interpretation 07/05/2016 7:46 AM CDT [facility] Docketing Specialist Interpretation Atypical squamous cells of undetermined significance 07/05/2016 7:46 AM T [facility] Verified by Citlalli Singh MD on 07/05/2016 at 0746 CDT Comment: The most cost effective method for follow-up is HPV testing on the residual vial. See www.asccp.org for suggested follow-up. Docketing Specialist Previous Pap Date 07/05/2016 7:46 AM T [facility] Comment:states 2 plus years ago at [facility] 05/30/16 07/05/2016 7:46 AM CDT [facility] Docketing Specialist Educational Note 07/05/2016 7:46 AM T [facility] Comment: Gynecological cytology is a screening procedure subject to both false negative and false positive results. It is most reliable when a satisfactory sample is obtained on a regular repetitive basis. Results must be interpreted in the context of historic and current clinical information. Recommend patient management according to the 2012 ASCCP Consensus Guidelines, ([place]: Cancer J Clin, 62(3); 147-172,2012) EMBEDDED IMAGE 07/05/2016 7:46 AM T [facility] Genital SWAB OF ENDOCERVIX / Unknown 06/28/2016 10:21 AM CDT 06/29/2016 12:15 PM CDT Zita Noeln MD PATHOLOGY/CYTOLOGY ORDERABLES F inal Result [facility] CLIA# [id number] [address] [place] [address] from Last 3 Months or Most Recently Relevant to Health Maintenance Insurance [facility] Member Subscriber Plan / Payer ( fective 2018-Present) Name:Kendy Olivas Relation to Subscriber:Self Name:Kendy Olivas Payer ID:Not on file Group ID:Not on file Type:Commercial Address: [address] Care Teams It Application Architect Relationship Specialty Start Date End Date Cherie Francisco MD [address] [place] [place] [address] PCP - General Family Practice 02/27/21
--- OUTSIDE RECORDS SUMMARY | 2025-05-14 18:43 | XMS_ITS | Encounter Summary ---
Author Organization [facility] Address [address] [place] [address] Care Team Providers Care Environmental Conservation Professor Name Role Phone Cherie Francisco MD Primary Care Provider [phone] Encounter Details Date Type Department Care Team (Latest Contact Info) Description 05/15/2000 Outpatient 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
--- OUTSIDE RECORDS SUMMARY | 2025-05-14 18:43 | XMS_ITS | Encounter Summary ---
Author Organization [facility] Address [address] [place] [address] Care Team Providers Care Electrical Controls Assembler Name Role Phone Cherie Francisco MD Primary Care Provider + [phone] Reason for Referral * Outpatient Services (Routine) - Closed Specialty Diagnoses / Procedures Referred By Contac t Referred To Contact Radiology Diagnoses Thyromegaly Procedures US HEAD NECK TISSUES Primitivo Zhu FNP Phone: tel: fax: [facility] [address] [facility] [address] [place] [address] Phone: tel: fax: Referral ID Status Reason Start Date Expiration Date V isits Requested Visits Authorized [id number] Closed [facility] TO SCHEDULE ([facility]) 12/28/2015 01/27/2017 1 1 ITY LOCATOR Encounter Details Date Type Department Care Team (Late st Contact Info) Description 12/28/2015 Ancillary Orders [facility] Pre-Registration [place] CALL TO MAKE APPOINTMENT ONLY [address] [place] [address] Primitivo Zhu FNP [address] [facility] [address] [place] [address] Thyromegaly (Primary Dx) Social History Tobacco Use Types Packs/Day Years Used Date Smoking Tobacco: Never Alcohol Use Standard Drinks/Week Comments No 0 (1 standard drink = 0.6 oz pur e alcohol) Comments No Sex and Gender Information Value Date Recorded Sex Assigned at Not on file Legal Sex Female 7:05 AM UTILITY LOCATOR Gender Identity Not on file Sexual Orientation Not on file documented as of this encounter Plan of Treatment Not on file documented as of this encounter Results * US HEAD NECK TISSUES (12/30/2015 2:31 PM UTILITY LOCATOR) Anatomical Region Laterality Modality Head Ultrasound 12/30/2015 2:31 PM UTILITY LOCATOR Impressions 12/30/2015 4:05 PM UTILITY LOCATOR IMPRESSION: Please see below. Exam: US HEAD NECK TISSUES Date/Time of Exam: 12/30/2015 2:31 PM Reason For Exam: Thyromegaly. Findings: There are no comparisons. The isthmus of the thyroid is 3.5 mm in thickness. The right lobe of the thyroid is 5.2 x 1.8 x 1.5 cm in size with a volume of 6.5 mL. The right lobe of the thyroid is smooth in contour and of normal homogeneous echo content. The left lobe of the thyroid is 4.9 x 1.7 x 1.6 cm in size with a volume of 6.4 mL. The left lobe of the thyroid is smooth in contour and of normal homogeneous echo content. IMPRESSION:: Unremarkable exam. Narrative Procedure Note Deanne Fountain MD - 12/30/2015 IMPRESSION IMPRESSION: Please see below. Exam: US HEAD NECK TISSUES Date/Time of Exam: 12/30/2015 2:31 PM Reason For Exam: Thyromegaly. Findings: There are no comparisons. The isthmus of the thyroid is 3.5 mm in thickness. The right lobe of the thyroid is 5.2 x 1.8 x 1.5 cm in size with a volume of 6.5 mL. The right lobe of the thyroid is smooth in contour and ofnormal homogeneous echo content. The left lobe of the thyroid is 4.9 x 1.7 x 1.6 cm in size with a volumeof 6.4 mL. The left lobe of the thyroid is smooth in contour and of normal homogeneous echo content. IMPRESSION:: Unremarkable exam. us Primitivo Counts RAIL SIGNAL WORKER US ORDERABLES Final Result documented in this encounter Visit Diagnoses Diagnosis Thyromegaly- Primary Goiter, unspecified Thyromegaly Goiter, unspecified documented in this encounter Care Teams Electrical Controls Assembler Relationship Specialty Start Date End Date Cherie Francisco MD [address] [place] [address] PCP - General Family Practice 02/27/21 documented as of this encounter
--- OUTSIDE RECORDS SUMMARY | 2025-05-14 18:43 | XMS_ITS | Encounter Summary ---
Author Organization [facility] Address [address] [place] [address] Care Team Providers Care Special Equipment Technician Name Role Phone Cherie Francisco MD Primary Care Provider [phone] Encounter Details Date Type Department Care Team (Late st Contact Info) Description 08/24/2008 Outpatient Historical [facility] [place] [address] [place] [id number] Kareem Childress MD [address] [facility] [address] [place] [address] Social History Tobacco Use Types Packs/Day Years Used Date Smoking Tobacco: Never Alcohol Use Standard Drinks/Week Comments No 0 (1 standard drink = 0.6 oz pur e alcohol) Comments No Sex and Gender Information Value Date Recorded Sex Assigned at Not on file 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
[2025-05-14 20:29] LABS: Bilirubin Urine Negative (Negative); Blood Urine 1+ (Negative); Glucose Urine UA Negative (Normal); Ketones Urine Negative (Negative); Leukocyte Esterase Urine Trace (Negative); Nitrate Urine Negative (Negative); Protein Urine Negative (Negative); Specific Gravity, Urine 1.008 (1.005-1.030); Urine Appearance Clear (CLEAR); Urine Color Yellow (Yellow); Urobilinogen Urine 0.2 mg/dL (Negative); pH Urine 7.5 (5-7)
[2025-05-14 20:35] LABS: Add Urine Microscopic? YES; Bacteria Urine None Seen /hpf; RBC Urine 0-2 /hpf (0-2); Squamous Epithelial Cell Urine 0-5 /hpf (0-5); WBC Urine 0-5 /hpf (0-5)
--- NOTE | 2025-05-14 20:39 | XRR_ITS ---
PROCEDURE INFORMATION: Exam: XR Soft Tissue Neck Exam date and time: 05/14/2025 8:42 PM Age: 45 years old Clinical indication: Mass, lump, or swelling in neck; Anterior; C/O worsening swelling in neck with dysphagia. History of jesus's with goiter. ; Additional info: Drooling TECHNIQUE: Imaging protocol: Radiologic exam of the soft tissues of the neck. COMPARISON: CT angio chest PE protcl [id number] 05/21/2024 3:56 PM FINDINGS: Airway: Normal. No abnormal narrowing. Soft tissues: Soft tissue fullness in the lower neck on the frontal view. Bones/joints: Unremarkable. XR/XR soft tissue neck [id number] IMPRESSION: Soft tissue fullness in the lower neck could be from thyromegaly. This could be further assessed with CT if warranted.
[2025-05-14 20:48] LABS: Basophils # 0.1 10^3/uL (0.0-0.1); Basophils % 0.6 %; Eosinophils # 0.4 10^3/uL (0.0-0.8); Eosinophils % 4.3 %; Hematocrit 40.5 % (36-47); Lymphocytes # 2.9 10^3/uL (0.8-4.8); Mean Corpuscular HGB Conc 32.6 g/dL (30-55); Mean Corpuscular Hemoglobin 30.5 pg (27-33); Mean Corpuscular Volume 93.5 fl (85-98); Mean Platelet Volume 9.1 fL (7.4-10.4); Monocytes # 0.7 10^3/uL (0.2-0.9); Monocytes % 8.8 %; Neutrophils # 4.05 10^3/uL (1.8-7.7); Neutrophils % 50.1 %; Nucleated Red Blood Cells % 0 %; Platelet Count 316 10^3/cmm (157-399); Red Blood Count 4.33 10^6/uL (3.85-5.65); Red Cell Distribution Width 12.2 % (12.1-15.1)
[2025-05-14 21:05] LABS: Alanine Aminotransferase 11 U/L (0-33); Albumin Level 4.2 g/dL (3.5-5.2); Alkaline Phosphatase 65 U/L (35-105); Aspartate Amino Transferase 16 U/L (0-32); Blood Urea Nitrogen 12 mg/dL (6-20); Calcium 9.5 mg/dL (8.5-10.5); Carbon Dioxide 23 mmol/L (22-29); Chloride 103 mmol/L (98-107); Globulin 3.2 g/dL (1.3-4.6); Glomerular Filtration Rate 91.3 mL/min (90-130); Glucose 87 mg/dL (65-115); Osmolality Calculated 285 mOsm/kg (285-295); Sodium 138 mmol/L (136-145); Total Bilirubin 0.4 mg/dL (0.15-1.2); Total Protein 7.4 g/dL (6.6-8.7)
--- NOTE | 2025-05-14 21:31 | CTR_ITS ---
PROCEDURE INFORMATION: Exam: CT Neck With Contrast Exam date and time: 05/14/2025 10:25 PM Age: 45 years old Clinical indication: Mass, lump, or swelling in neck; Anterior; C/O neck swelling with increased secretions. History of jesus's. ; Additional info: Drooling, unable to handle secreations, thyroidmegaly TECHNIQUE: Imaging protocol: Computed tomography of the neck with contrast. Radiation optimization: All CT scans at this facility use at least one of these dose optimization techniques: automated exposure control; mA and/or kV adjustment per patient size (includes targeted exams where dose is matched to clinical indication); or iterative reconstruction. Contrast material: OMNI 350; Contrast volume: 80 ml; Contrast route: INTRAVENOUS (IV); COMPARISON: CR (NECK, ) 05/14/2025 8:42 PM RADIATION DOSE METRICS: Total DLP (mGy-cm): 145.62 FINDINGS: Salivary glands: Normal. Glands are normal in size. Pharynx: Unremarkable. No significant tonsillar enlargement. Larynx: Unremarkable. Epiglottis is normal. Thyroid: Normal. No enlarged or calcified nodules. Trachea: Visualized trachea is unremarkable. Lungs: Unremarkable as visualized. Lymph nodes: Unremarkable. No lymphadenopathy. Bones/joints: Unremarkable. No acute fracture. Soft tissues: Unremarkable. No significant soft tissue swelling. CT/CT neck w con* [id number] IMPRESSION: No acute findings.
--- NOTE | 2025-05-14 21:44 | ED.PEDHENT ---
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 Related Data Home Medications ?Medication ?Instructions ?Recorded ?Confirmed cholecalciferol (vitamin D3) 1,250 1,250 mcg PO DAILY 11/27/23 02/10/25 mcg (50,000 unit) capsule alprazolam 0.25 mg tablet 0.25 mg PO BID PRN Anxiety 12/09/23 02/10/25 cyanocobalamin (vitamin B-12) 1,000 mcg PO DAILY 12/09/23 02/10/25 1,000 mcg tablet (Vitamin B-12) tretinoin 0.05 % topical cream 1 applic topical BEDTIME 12/09/23 02/10/25 Previous Rx's ?Medication ?Instructions ?Recorded linaclotide 72 mcg capsule 72 mcg PO DAILY #30 caps 05/11/24 (Linzess) albuterol sulfate 90 mcg/actuation 2 puff inhalation Q6H PRN 07/18/24 aerosol inhaler shortness of breath or wheezing #8.5 grams nirmatrelvir 300 mg (150 mg See Rx Instructions PO .COMPLEX 07/18/24 x2)-ritonavir 100 mg tablet,dose #30 ea pack (Paxlovid) magnesium oxide 400 mg (241.3 mg 400 mg PO DAILY #90 tabs 02/10/25 magnesium) tablet metoprolol succinate 25 mg 25 mg PO DAILY #30 tabs 04/19/25 tablet,extended release 24 hr Allergies Allergy/AdvReac Type Severity Reaction Status Date / Time No Known Allergies Allergy Verified 05/14/25 18:44 Pediatric ROS Review of Systems: ALL SYSTEMS: reviewed and no additional remarkable complaints except as stated CONSTITUTIONAL: no weight loss or no weight gain EYES: no change in vision or no double vision EARS, NOSE, MOUTH, THROAT: other (dysphagia); no headaches, no vertigo or no lightheadedness CARDIOVASCULAR: no chest pain or no palpitations RESPIRATORY: no pain with respirations or no shortness of breath GASTROINTESTINAL: no change in appetite, no dysphagia, no nausea or no vomiting GENITOURINARY: no urgency or no frequency MUSCULOSKELETAL: no pain or no swelling INTEGUMENTARY: no rash PFSH ED PFSH: Medical History (Updated 05/15/25 @ 01:34 by DIONNE Butler) COVID Cough Surgical History (Updated 02/10/25 @ 12:35 by Yoon Wolff LPN) Hx of breast augmentation Family History (Updated 02/10/25 @ 12:36 by Yoon Wolff LPN) Family/Other No problems noted. Grandfather CAD (coronary artery disease) Hypertension Diabetes mellitus, type 2 Cancer Social History Smoking and tobacco/nicotine status: never used tobacco/nicotine Alcohol intake: never Substance/Drug Use: never Adopted: No Caregiver/support person: No Lives independently: No Household members: significant other service: No Current occupational status: employed Sexually active: Yes Do you think of yourself as: Straight/Heterosexual Current gender identity: Female Female Reproductive History: Date of last menstrual period: 05/11/25 Pediatric Exam Const: Constitutional General: cooperative, healthy appearing, comfortable, no acute distress and well developed; No acute distress Nutritional Appearance: normal and well nourished HENMT: Head: normal to inspection and normocephalic Eyes: General: appearance normal, both eyes and all related structures Neck: Neck: normal visual inspection, full ROM, no lymphadenopathy, no meningeal signs, trachea midline and supple Thyroid: Thyroid normal Lymphatic: no lymphadenopathy noted Chest: Chest: normal inspection of the chest and normal palpation of entire chest wall Resp: Effort & Inspection: normal respiratory effort and able to speak in complete sentences Cardio: Rate: regular rate GI: Inspection: Yes normal to inspection Palpation: Soft to palpation Skin: General: no rashes or lesions noted Neuro: General: Yes No meningeal signs Extrem: General: normal to inspection, full ROM and capillary refill normal Course Vital Signs: Vital signs: Vital Signs Temperature 98.3 F 05/14/25 18:34 Pulse Rate 70 05/14/25 23:20 Respiratory Rate 16 05/14/25 18:34 Blood Pressure 117/71 05/14/25 23:20 Pulse Oximetry 98 05/14/25 23:20 Oxygen Delivery Me thod Room Air 05/14/25 22:30 Medical Decision Making Medical Decision Making Patient is a 45-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 She is awaiting upper GI to further review. She complained of drooling, difficulty managing her airway, thickness feeling in her throat, like she cannot lay down. Given her symptoms, soft tissue x-ray was first obtained. There was concern of increased swelling in that area, and recommending CT. CT was obtained which showed no acute abnormality. On my view, patient had no airway compromise. Discussed with patient that this could be a functional issue associated with the thyroid although no additional concerns were found on physical examination, and I would recommend sour candy/lemon drops to see if this helps the underlying issue, call her doctor on Saturday for follow-up next week. Lab Data 05/14/25 20:14 05/14/25 20:14 Radiology Impressions Soft Tissue Neck X-Ray 05/14/25 20:39 IMPRESSION: Soft tissue fullness in the lower neck could be from thyromegaly. This could be further assessed with CT if warranted. Neck CT 05/14/25 21:31 IMPRESSION: No acute findings. Laboratory Results WBC 8.10 10^3/uL (3.29-11.43) 05/14/25 20:14 RBC 4.33 10^6/uL (3.85-5.65) 05/14/25 20:14 Hgb 13.20 g/dL (11.27-16.99) 05/14/25 20:14 Hct 40.5 % (36-47) 05/14/25 20:14 MCV 93.5 fl (85-98) 05/14/25 20:14 MCH 30.5 pg (27-33) 05/14/25 20:14 MCHC 32.6 g/dL (30-55) 05/14/25 20:14 RDW 12.2 % (12.1-15.1) 05/14/25 20:14 Plt Count 316 10^3/cmm (157-399) 05/14/25 20:14 MPV 9.1 fL (7.4-10.4) 05/14/25 20:14 Neut % (Auto) 50.1 % 05/14/25 20:14 Lymph % (Auto) 36.0 % 05/14/25 20:14 [place] % (Auto) 8.8 % 05/14/25 20:14 Eos % (Auto) 4.3 % 05/14/25 20:14 Baso % (Auto) 0.6 % 05/14/25 20:14 Neut # (Auto) 4.05 10^3/uL (1.8-7.7) 05/14/25 20:14 Lymph # (Auto) 2.9 10^3/uL (0.8-4.8) 05/14/25 20:14 [place] # (Auto) 0.7 10^3/uL (0.2-0.9) 05/14/25 20:14 Eos # (Auto) 0.4 10^3/uL (0.0-0.8) 05/14/25 20:14 Baso # (Auto) 0.1 10^3/uL (0.0-0.1) 05/14/25 20:14 Nucleated RBC % (auto) 0 % 05/14/25 20:14 Nucleated RBCs # 0.0 /100WBC 05/14/25 20:14 Sodium 138 mmol/L (136-145) 05/14/25 20:14 Potassium 4.0 mmol/L (3.5-5.1) 05/14/25 20:14 Chloride 103 mmol/L (98-107) 05/14/25 20:14 Carbon Dioxide 23 mmol/L (22-29) 05/14/25 20:14 Anion Gap 16.0 (5-19) 05/14/25 20:14 BUN 12 mg/dL (6-20) 05/14/25 20:14 Creatinine 0.7 mg/dL (0.5-0.9) 05/14/25 20:14 GFR Calculation 91.3 mL/min (90-130) 05/14/25 20:14 Glucose 87 mg/dL (65-115) 05/14/25 20:14 Calculated Osmolality 285 mOsm/kg (285-295) 05/14/25 20:14 Calcium 9.5 mg/dL (8.5-10.5) 05/14/25 20:14 Total Bilirubin 0.4 mg/dL (0.15-1.2) 05/14/25 20:14 AST 16 U/L (0-32) 05/14/25 20:14 ALT 11 U/L (0-33) 05/14/25 20:14 Alkaline Phosphatase 65 U/L (35-105) 05/14/25 20:14 Total Protein 7.4 g/dL (6.6-8.7) 05/14/25 20:14 Albumin 4.2 g/dL (3.5-5.2) 05/14/25 20:14 Globulin 3.2 g/dL (1.3-4.6) 05/14/25 20:14 Urine Color Yellow (Yellow) 05/14/25 19:40 Urine Appearance Clear (CLEAR) 05/14/25 19:40 Urine pH 7.5 (5-7) 05/14/25 19:40 Ur Specific [place] 1.008 (1.005-1.030) 05/14/25 19:40 Urine Protein Negative (Negative) 05/14/25 19:40 Urine Glucose (UA) Negative (Normal) 05/14/25 19:40 Urine Ketones Negative (Negative) 05/14/25 19:40 Urine Blood 1+ (Negative) A 05/14/25 19:40 Urine Nitrate Negative (Negative) 05/14/25 19:40 Urine Bilirubin Negative (Negative) 05/14/25 19:40 Urine Urobilinogen 0.2 mg/dL (Negative) 05/14/25 19:40 Ur Leukocyte Esterase Trace (Negative) A 05/14/25 19:40 Urine RBC 0-2 /hpf (0-2) 05/14/25 19:40 Urine WBC 0-5 /hpf (0-5) 05/14/25 19:40 Ur Squamous Epith Cells 0-5 /hpf (0-5) 05/14/25 19:40 Amorphous Sediment Not Reportable 05/14/25 19:40 Urine Bacteria None seen /hpf (NONE) 05/14/25 19:40 Hyaline Casts 0.40 /lpf 05/14/25 19:40 All radiology interpretation(s) finalized by discharge ED provider radiology interpretation(s): no acute Discharge Plan Discharge Patient Disposition: Home Clinical Impression: Neck swelling, Drooling Condition: Stable Prescriptions: No Action Linzess 72 mcg capsule 72 mcg PO DAILY Qty: 30 1RF cholecalciferol (vitamin D3) 1,250 mcg (50,000 unit) capsule 1,250 mcg PO DAILY albuterol sulfate 90 mcg/actuation HFA aerosol inhaler 2 puff inhalation Q6H PRN (Reason: shortness of breath or wheezing) Qty: 8.5 2RF Paxlovid 300 mg (150 mg x 2)-100 mg tablets,dose pack See Rx Instructions PO .COMPLEX Qty: 30 0RF Rx Instructions: take TWO 150 mg tablets of nirmatrelvir with ONE 100 mg tablet of ritonavir twice daily for 5 days PO magnesium oxide 400 mg (241.3 mg magnesium) tablet 400 mg PO DAILY Qty: 90 3RF metoprolol succinate 25 mg tablet extended release 24 hr 25 mg PO DAILY Qty: 30 1RF cyanocobalamin (vitamin B-12) [Vitamin B-12] 1,000 mcg Tablet 1,000 mcg PO DAILY tretinoin 0.05 % cream 1 applic TOPICAL BEDTIME alprazolam 0.25 mg tablet 0.25 mg PO BID PRN (Reason: Anxiety) Discharge Orders: Discharge ED (Routine); Ordered 05/14/25 Ordered By: Kalpana Wilson Referrals: Louis Mendez, DIP STAND LOADER [Primary Care Provider, Family Practice] Discharge Diet: Usual diet Discharge Activity: Resume usual activity Patient Instructions: Dysphagia (ED), Patient Portal & David Instructions Activity Restrictions/Additional Instructions: Obtain sour candy or lemon drops to see if this helps the issue [facility] Call on Saturday to ensure this is in the works. Return to ED with issues with keeping up with your secretions, ongoing drooling for additional evaluation. Stand Alone Forms: Work/School Release Print Language: Icelandic Coding Level of Care Code ED Rocket Motor Tester for Gallo Campo
[2025-05-14] MEDS: iohexol 350 mg/mL 500 mL Btl (per mL) IV (22:25)
== END 2025-05-14 23:20 | disposition home or self-care (01) ==
PROVIDERS: Student in an Organized Health Care Education/Training Program; Emergency Provider Physician Assistant; PCP Registered Nurse
DX: R22.1 Localized swelling, mass and lump, neck (principal); K11.7 Disturbances of salivary secretion
CPT/HCPCS: 36415; 70360; 70491; 80053; 81001; 85025; 99285

== ENCOUNTER 2025-05-27 09:59 | Outpatient (CLI) | payer OTHER, SELFPAY ==
--- NOTE | 2025-05-27 10:06 | FL_ITS ---
WS: [id number] Exam: FL barium swallow modifd [id number] Date/Time of Exam: 05/27/2025 10:12 AM Reason For Exam: Other dysphagia Fluoroscopy time: 2min [id number] minutes # of spot films: Modified barium swallow test is performed in conjunction with the speech therapy service. Oral pharyngeal phase of swallowing was normal. The patient tolerated all consistencies of barium mixture foodstuffs without aspiration or penetration. The patient swallowed a barium tablet without difficulty. FL/FL barium swallow modifd [id number] IMPRESSION: 1. Unremarkable modified barium swallow test. A separate report and recommendations will follow from the speech therapy servi ce.
== END 2025-05-27 10:00 | disposition home or self-care (01) ==
LOC: RAD 10:00
PROVIDERS: PCP Registered Nurse; Visit Provider Family Medicine
DX: R13.10 Dysphagia, unspecified (principal)
CPT/HCPCS: 74230; 92611

== ENCOUNTER 2025-08-05 10:12 | Day surgery (SDC) | payer OTHER, SELFPAY ==
[2025-08-05 10:28] VITALS: BMI 20.9
[2025-08-05 10:41] LABS: OR HCG Qualitative Urine Negative (Negative)
--- NOTE | 2025-08-05 10:41 | P.HPUD_ITS ---
Surgery/Procedure H&P Update DATE OF PROCEDURE: August 05, 2025 DATE H&P PERFORMED: 07/20/25 H&P UPDATE INFORMATION: I have reviewed H&P completed within last 30 days, I have examined patient prior to procedure, No changes to prior documentation, H&P is in [facility] EMR on date indicated and Risks and benefits of the procedure reviewed PLANNED PROCEDURE: Operation Date: 08/05/25 12:50 Proposed Procedures p EGD EGD with Biopsy [id number] G0105 R10.13 R19.4(Not Applicable) - Haris Stephens MD s Colonoscopy(Not Applicable) - Haris Stephens MD
[2025-08-05 10:45] VITALS: BP 111/78; PULSE 87; RESP 16; TEMP 36.6; O2SAT 96
--- NOTE | 2025-08-05 11:12 | ANES.PREANE2 ---
Pre-Anesthetic Assessment Height/Weight: Height 1.65 m Weight 57.153 kg Temp Pulse Resp BP Pulse Ox O2 Del Method 97.8 F 87 16 111/78 96 Room Air 08/05/25 10:45 08/05/25 10:45 08/05/25 10:45 08/05/25 10:45 08/05/25 10:45 08/05/25 10:45 Operation Date: 08/05/25 12:50 Proposed Procedures p EGD EGD with Biopsy [id number] G0105 R10.13 R19.4(Not Applicable) - Haris Stephens MD s Colonoscopy(Not Applicable) - Haris Stephens MD Familial anesthetic complications: None Was Beta Aki taken within 24 hours: N/A Was Clonidine taken within 24 hours: N/A Last intake: Intake Last Liquid Date 08/04/25 Last Liquid Time 23:50 Last Solid Date 08/03/25 Last Solid Time 18:00 Social No alcohol and No tobacco Exam alert, oriented x 3, clear to auscultation bilaterally and regular rate & rhythm Airway Submandibular: within normal limits Cervical ROM: within normal limits Mallampati: Class II Dentition: full History/ROS No significant history except as noted and No significant complaints Pulmonary None reported CV/HEM None reported None reported Hepatic None reported GI Gastroesophageal Reflux Disease Metabolic Thyroid Disease [facility] [place] None reported Neuropsych Seizure (Eclampsia) Anesthetic Plan ASA status: 1 Anesthesia: Anesthesia Evaluation, General and MAC Risk of > 500 ml blood loss (7ml/kg in children): No Medications/Allergies Home Medications ?Medication ?Instructions ?Recorded ?Confirmed ?Last Taken ?Type cholecalciferol (vitamin D3) 1,250 1,250 mcg PO DAILY 11/27/23 08/05/25 08/03/25 History mcg (50,000 unit) capsule alprazolam 0.25 mg tablet 0.25 mg PO BID PRN Anxiety 12/09/23 08/05/25 1 Day Ago History ~01/13/24 cyanocobalamin (vitamin B-12) 1,000 mcg PO DAILY 12/09/23 08/05/25 08/03/25 History 1,000 mcg tablet (Vitamin B-12) tretinoin 0.05 % topical cream 1 applic topical BEDTIME 12/09/23 08/05/25 08/03/25 History albuterol sulfate 90 mcg/actuation 2 puff inhalation Q6H PRN 07/18/24 08/05/25 Unknown Rx aerosol inhaler shortness of breath or wheezing #8.5 grams bisacodyl 5 mg tablet,delayed 5 mg PO DAILY 07/20/25 08/05/25 08/05/25 History release (Dulcolax (bisacodyl)) magnesium citrate 500 mg PO DAILY 07/20/25 08/05/25 08/03/25 History magnesium glycinate 500 mg PO DAILY 07/20/25 08/05/25 08/03/25 History naltrexone 0.5 mg PO DAILY 07/20/25 08/05/25 08/03/25 History ondansetron 8 mg disintegrating 8 mg PO Q8H PRN nausea and 07/20/25 08/05/25 08/05/25 Rx tablet vomiting #3 tabs progesterone micronized 100 mg 200 mg PO QAM 07/20/25 08/05/25 08/03/25 History capsule Allergies Allergy/AdvReac Type Severity Reaction Status Date / Time No Known Allergies Allergy Verified 08/05/25 10:32 Current Medications Generic Name Dose Route Start Last Admin Trade Name Freq PRN Reason Stop Dose Admin Sodium Chloride 1,000 mls @ 15 mls/hr 08/05/25 10:38 08/05/25 10:47 Sodium Chloride 0.9% IV 08/06/25 10:37 15 mls/hr .Q24H PRN Administration COLONOSCOPY FLUIDS PFSH Anesthesia Medical History (Updated 07/20/25 @ 11:57 by Natasha Romero RN) Change in bowel habit Marlys's disease COVID Cough Surgical History (Updated 02/10/25 @ 12:35 by Yoon Wolff LPN) Hx of breast augmentation Family History (Updated 02/10/25 @ 12:36 by Yoon Wolff LPN) Family/Other No problems noted. Grandfather CAD (coronary artery disease) Hypertension Diabetes mellitus, type 2 Cancer Social History Smoking and tobacco/nicotine status: never used tobacco/nicotine Alcohol intake: never Substance/Drug Use: never Adopted: No Caregiver/support person: No Lives independently: No Household members: significant other service: No Current occupational status: employed Sexually active: Yes Do you think of yourself as: Straight/Heterosexual Current gender identity: Female Female Reproductive History Date of last menstrual period: 07/21/25 Data Anesthesia Cardiac Studies: Echocardiogram 03/23/25
--- NOTE | 2025-08-05 11:47 | PC.NURSE ---
CECUM 1147
[2025-08-05 12:01] VITALS: BP 91/74; PULSE 96; RESP 12; TEMP 36.3; O2SAT 100
[2025-08-05 12:12] VITALS: BP 91/72; PULSE 93; RESP 16; O2SAT 100
--- NOTE | 2025-08-05 12:35 | ANE.PACU2 ---
Inpatient post-anesthesia follow up: Airway intact: Yes Vital signs: Temperature 97.3 F Pulse Rate 93 Respiratory Rate 16 Blood Pressure 91/72 Pulse Oximetry 100 Oxygen Delivery Me thod Room Air Oxygen Flow Rate Fraction of Inspir ed Oxygen Hydration adequate: Yes Nausea and vomiting: No Pain level: 1 Mental status: Baseline
== END 2025-08-05 12:34 | disposition home or self-care (01) ==
PROVIDERS: PCP Registered Nurse; Visit Provider Surgery
PROC: 0DJ08ZZ Inspection of Upper Intestinal Tract, Via Natural or Artificial Opening Endoscopic (ICD-10-PCS; principal; 2025-08-05 12:50)
PROC: 0DJD8ZZ Inspection of Lower Intestinal Tract, Via Natural or Artificial Opening Endoscopic (ICD-10-PCS; CPT 45378; 2025-08-05 12:50)
DX: K59.04 Chronic idiopathic constipation (principal); R10.13 Epigastric pain; K29.50 Unspecified chronic gastritis without bleeding; K29.80 Duodenitis without bleeding; K21.9 Gastro-esophageal reflux disease without esophagitis; E07.9 Disorder of thyroid, unspecified; R56.9 Unspecified convulsions
CPT/HCPCS: 43239; 45380; 81025; 88305; 88342; J2250; J2704; J3490; J7030